=== PATIENT | female | born 1950 | race Caucasian/White ===

== ENCOUNTER → 2016-12-07 | Outpatient (CLI) | payer OTHER ==
[~2016-12-07] MED LIST: AMARYL4 MG PO; APIDRA SOL100 UNIT/1 SC; APIDRA100 UNIT/1; APIDRA100 UNIT/1 SC; ASCOMP WITH CO1 EACH PO; ASCORBIC ACID500 M3 PO; ASPIR 8181 M1 PO; ASPIR-LOW81 M1 PO; ASPIRIN81 M2 PO; BUMETANIDE1 MG PO; BUPROPION XL300 MG PO; CEFTIN500 MG PO; CELEXA20 MG PO; CITALOPRAM HBR20 MG PO; CLONAZEPAM1 MG PO; CRANBERRY TABL1 EACH PO; CRANBERRY500 M3 PO; ESZOPICLONE3 MG PO; FLEVOXIN TABLE1 EACH PO; FLEXERIL10 MG PO; GLUCOPHAGE500 MG PO; HYDROCODON-ACE1 EA10 PO; HYDROCODON-ACE1 EAC7 PO; K-DUR20 MEQ PO; KEFLEX500 MG PO; KLONOPIN2 MG PO; LANTUS 3 M100 UNITS1 SC; LISINOPRIL10 MG PO; LOPRESSOR25 MG PO; LOW DOSE ASPIRI81 M1 PO; LUNESTA3 MG PO; METFORMIN HCL1000 M1 PO; METFORMIN HCL1000 M3 PO; METFORMIN HCL1000 MG PO; METFORMIN HCL500 MG PO; METOPROLOL SUCC25 MG PO; METOPROLOL TART25 MG PO; NASCOBAL1 EACH NS; NASCOBAL2.3 ML NS; NEURONTIN300 MG PO; NICOTINE PATCH1 EAC2 TD; NORCO 10/3251 TABLET PO; NUVIGIL150 MG PO; PERCOCET 10/1 TABLET PO; PRINIVIL10 MG PO; RELPAX40 MG PO; REQUIP2 MG PO; RESTORIL7.5 MG PO; ROBINUL FORTE2 MG PO; ROCEPHIN1000 MG IV; ROPINIROLE HCL2 MG PO; SIMVASTATIN40 MG PO; SIMVASTATIN80 MG PO; TRULICITY1.5 MG/0.5 SC; VITAMIN C + RO500 MG PO; VITAMIN E400 UNIT PO; WELLBUTRIN SR100 MG PO; WELLBUTRIN SR150 MG PO; WELLBUTRIN XL300 MG PO; ZOCOR40 MG PO; ZOCOR80 MG PO
== END | disposition home or self-care (01) ==
LOC: AMB 11:15
DX: M48.06 Spinal stenosis, lumbar region (principal); M54.5 Low back pain
CPT/HCPCS: 62304; 72132

== ENCOUNTER 2017-03-07 11:04 | Emergency (ER) | payer OTHER ==
[~2017-03-07] VITALS: Ht 160 cm; Wt 81.8 kg
[2017-03-07] MEDS ORDERED: MOTRIN800 MG PO (13:54)
[2017-03-07 14:13] VITALS: BP 133/83
== END 2017-03-07 14:18 | disposition home or self-care (01) ==
LOC: EME 11:04
DX: S20.211A Contusion of right front wall of thorax, initial encounter (principal); W10.9XXA Fall (on) (from) unspecified stairs and steps, initial encounter; I10 Essential (primary) hypertension; K21.9 Gastro-esophageal reflux disease without esophagitis; Z79.82 Long term (current) use of aspirin; Z87.891 Personal history of nicotine dependence; Z96.653 Presence of artificial knee joint, bilateral
CPT/HCPCS: 71020; 99281; 99284

== ENCOUNTER 2017-03-13 12:48 | Observation (INO) | payer OTHER ==
[~2017-03-13] VITALS: Ht 160 cm; Wt 86.6 kg
[~2017-03-13 12:48] MED LIST changes: +MOTRIN800 MG PO
[2017-03-13 13:36] LABS: HEMATOCRIT 35.4 % (36.0-46.0); MCH 30.3 PG (29.0-34.0); MCHC 33.3 G/DL (30.0-36.0); MEAN PLAT.VOLUME 10.1 uM^3 (9.5-12.4); PLATELET COUNT 217 K/uL (156-360); RBC DIS.WIDTH-CV 13.2 % (11.8-14.6); RBC DIS.WIDTH-SD 43.5 % (39-53); RED BLOOD COUNT 3.89 M/uL (3.80-5.20); WHITE BLOOD COUNT 10.2 K/uL (4.1-10.2)
[2017-03-13 13:44] LABS: CHLORIDE 104 mEq/L (99-109); POTASSIUM 4.3 mEq/L (3.7-5.4); SODIUM 140 mEq/L (136-147)
[2017-03-13 13:47] LABS: GLUCOSE 151 mg/dL (70-99)
[2017-03-13 13:48] LABS: ANION GAP 12 MEQ/L (2-14)
[2017-03-13 13:49] LABS: TOTAL BILIRUBIN 0.4 mg/dL (0.0-1.0)
[2017-03-13 13:50] LABS: ALKALINE PHOSPHATASE 79 IU/L (3-129); SERUM ETHYL ALCOHOL < 10 mg/dL
[2017-03-13 13:51] LABS: GFR ESTIMATE (CALCULATED) 32 mL/min/
[2017-03-13 13:52] LABS: UREA NITROGEN (BUN) 29 mg/dL (9-23)
[2017-03-13] MEDS ORDERED: TOPROL XL50 MG PO (16:13)
[2017-03-13] MEDS ORDERED: IBUPROFEN800 MG PO (16:14)
[2017-03-13] MEDS ORDERED: NEURONTIN600 MG PO (16:15)
[2017-03-13] MEDS ORDERED: LUNESTA3 MG PO (16:16)
[2017-03-13] MEDS ORDERED: REQUIP3 MG PO (16:16)
[2017-03-13] MEDS ORDERED: LANTUS 3 M100 UNITS1 SC (16:18)
[2017-03-13] MEDS ORDERED: CYANOCOBAL1000 MCG/2 IM (16:18)
[2017-03-13] MEDS ORDERED: ATORVASTATIN CA20 MG PO (16:18)
[2017-03-13] MEDS ORDERED: PRED FORTE100 DROP/5 RIGHT EYE (16:19)
[2017-03-13] MEDS ORDERED: CARDIZEM CD,CA240 MG PO (16:19)
[2017-03-13] MEDS ORDERED: PROLENSA1.6 ML RIGHT EYE (16:19)
[2017-03-13] MEDS ORDERED: OMEPRAZOLE20 MG PO (16:19)
[2017-03-13] MEDS ORDERED: VITAMIN D31000 UNIT PO (16:20)
[2017-03-13] MEDS ORDERED: SUPER CALCIUM600 MG PO (16:20)
[2017-03-13 19:50] LABS: ADD MIUA? YES; BILIRUBIN NEGATIVE; BLOOD SMALL; COLOR YELLOW ((YELLOW)); GLUCOSE (STRIP) NEGATIVE; KETONES NEGATIVE; LEUKOCYTES LARGE; NITRITE NEGATIVE; PROTEIN (STRIP) NEGATIVE; SPECIFIC GRAVITY 1.009 (1.000-1.030); UROBILINOGEN 0.2 MG/DL (0.2-1.0)
[2017-03-13 20:00] VITALS: BP 107/60
[2017-03-13 20:00] LABS: ADD MEDTOX COMMENT Y; AMPHETAMINE NEGATIVE (500 ng/mL); BARBITURATES NEGATIVE (200 ng/mL); BENZODIAZEPINES NEGATIVE (150 ng/mL); COCAINE NEGATIVE (150 ng/mL); INTERNAL CONTROLS VALID? YES; METHADONE NEGATIVE (200 ng/mL); METHAMPHETAMINE NEGATIVE (500 ng/mL); OPIATES (MORPHINE) PRESUMPTIVE POSITIVE (100 ng/mL); OXYCODONE NEGATIVE (100 ng/mL); PHENCYCLIDINE NEGATIVE (25 ng/mL); PROPOXYPHENE NEGATIVE (300 ng/mL); THC CANNABINOIDS NEGATIVE (50 ng/mL); TRICYCLIC ANTIDEPRESSANTS NEGATIVE (300 ng/mL)
[2017-03-13 20:11] LABS: BACTERIA RARE /HPF; EPITHELIAL CELLS RARE /HPF; MUCUS TRACE /LPF; RED BLOOD CELLS NONE SEEN /HPF (0-5); UCUL ADDED? NO; WHITE BLOOD CELLS 40-50 /HPF (0-5)
[2017-03-13 21:55] LABS: INTERNAL CONTROL VALID? YES
[2017-03-13 22:06] LABS: INTERNAL CONTROL VALID? YES
[2017-03-13 22:39] LABS: C DIFF TOXIN NEGATIVE (NEGATIVE)
[2017-03-13 22:42] LABS: PROBE CHECK PASS; SPECIMEN PROCESSING CONTROL PASS
[2017-03-14] VITALS (7 sets, daily range): BP systolic 90–138; BP diastolic 52–81
[2017-03-14 07:30] LABS: POINT-OF-CARE METER ID UU14188625
[2017-03-14 07:43] LABS: MCH 30.5 PG (29.0-34.0); MCHC 32.7 G/DL (30.0-36.0); MCV 93.2 FL (83-99); MEAN PLAT.VOLUME 11.3 uM^3 (9.5-12.4); PLATELET COUNT 179 K/uL (156-360); RBC DIS.WIDTH-CV 13.2 % (11.8-14.6); RBC DIS.WIDTH-SD 45.1 % (39-53); RED BLOOD COUNT 3.54 M/uL (3.80-5.20)
[2017-03-14 07:45] LABS: ANION GAP 7 MEQ/L (2-14); CHLORIDE 102 MEQ/L (99-109); GFR ESTIMATE (CALCULATED) 44 mL/min/; POTASSIUM 4.4 MEQ/L (3.7-5.4); SAMPLE HEMOLYSIS CHECK 0; SAMPLE ICTERIC CHECK 0; SAMPLE LIPEMIA CHECK 0; SODIUM 140 MEQ/L (136-147); UREA NITROGEN (BUN) 24 mg/dL (9-23)
[2017-03-14 07:50] LABS: GLUCOSE 238 mg/dL (70-99)
[2017-03-14 07:58] LABS: WHITE BLOOD COUNT 5.8 K/uL (4.1-10.2)
[2017-03-14 16:50] LABS: POINT-OF-CARE METER ID UU14174225
[2017-03-14 21:17] LABS: POINT-OF-CARE METER ID UU14174225
[2017-03-15 08:25] VITALS: BP 127/81
[2017-03-15 08:53] LABS: POINT-OF-CARE METER ID UU14174225
[2017-03-15 09:07] LABS: HEMATOCRIT 35.5 % (36.0-46.0); MCH 30.1 PG (29.0-34.0); MCHC 32.7 G/DL (30.0-36.0); MEAN PLAT.VOLUME 10.7 uM^3 (9.5-12.4); PLATELET COUNT 173 K/uL (156-360); RBC DIS.WIDTH-CV 12.9 % (11.8-14.6); RBC DIS.WIDTH-SD 43.1 % (39-53); RED BLOOD COUNT 3.86 M/uL (3.80-5.20); WHITE BLOOD COUNT 6.2 K/uL (4.1-10.2)
[2017-03-15 09:19] LABS: CHLORIDE 102 mEq/L (99-109); POTASSIUM 4.3 mEq/L (3.7-5.4); SODIUM 141 mEq/L (136-147)
[2017-03-15 09:20] LABS: GLUCOSE 155 mg/dL (70-99)
[2017-03-15 09:22] LABS: ANION GAP 11 MEQ/L (2-14)
[2017-03-15 09:24] LABS: GFR ESTIMATE (CALCULATED) 59 mL/min/
[2017-03-15 09:25] LABS: UREA NITROGEN (BUN) 13 mg/dL (9-23)
[2017-03-15 12:12] LABS: POINT-OF-CARE METER ID UU14174225
[2017-03-15] MEDS ORDERED: CIPRO500 MG PO (12:23)
[2017-03-15] MEDS ORDERED: FLAGYL500 MG PO (12:23)
== END 2017-03-15 13:20 | disposition home or self-care (01) ==
LOC: EME 12:48 → EDOF 16:59 → 5SOUTH 16:59 → EDOF 16:59 → 5SOUTH 19:09
PROVIDERS: Hospitalist; Internal Medicine; Nurse Practitioner Adult Health
DX: N17.9 Acute kidney failure, unspecified (principal); R07.89 Other chest pain; R19.7 Diarrhea, unspecified; R11.2 Nausea with vomiting, unspecified; R47.81 Slurred speech; R42 Dizziness and giddiness; E11.9 Type 2 diabetes mellitus without complications; G47.33 Obstructive sleep apnea (adult) (pediatric); F32.9 Major depressive disorder, single episode, unspecified; E78.5 Hyperlipidemia, unspecified; E66.9 Obesity, unspecified; R63.4 Abnormal weight loss; Z87.891 Personal history of nicotine dependence; G43.909 Migraine, unspecified, not intractable, without status migrainosus; K21.9 Gastro-esophageal reflux disease without esophagitis; I10 Essential (primary) hypertension
CPT/HCPCS: 70450; 71101; 74176; 80048; 80053; 81003; 82272; 82948; 83630; 84999; 85027; 87493; 87506; 93005; 94660; 99281; 99284; G0378; G0480; G8978 GP CH; G8979 GP CH; G8980 GP CH; J0744; J1644; J1815; J2405; J7030; J7120; S0030

== ENCOUNTER 2017-06-30 15:21 | Emergency (ER) | payer OTHER ==
[~2017-06-30] VITALS: Ht 160 cm; Wt 90.5 kg
[~2017-06-30 15:21] MED LIST changes: +ATORVASTATIN CA20 MG PO; +CARDIZEM CD,CA240 MG PO; +CIPRO500 MG PO; +CYANOCOBAL1000 MCG/2 IM; +FLAGYL500 MG PO; +IBUPROFEN800 MG PO; +NEURONTIN600 MG PO; +OMEPRAZOLE20 MG PO; +PRED FORTE100 DROP/5 RIGHT EYE; +PROLENSA1.6 ML RIGHT EYE; +REQUIP3 MG PO; +SUPER CALCIUM600 MG PO; +TOPROL XL50 MG PO; +VITAMIN D31000 UNIT PO
[2017-06-30] MEDS ORDERED: PERCOCET 5/31 TABLET PO (18:34)
[2017-06-30 19:05] VITALS: BP 108/59
== END 2017-06-30 19:06 | disposition home or self-care (01) ==
LOC: EME 15:21
PROC: 2W3CX1Z Immobilization of Right Lower Arm using Splint (ICD-10-PCS; principal; 2017-06-30)
DX: S52.591A Other fractures of lower end of right radius, initial encounter for closed fracture (principal); W01.0XXA Fall on same level from slipping, tripping and stumbling without subsequent striking against object, initial encounter; Y92.512 Supermarket, store or market as the place of occurrence of the external cause; I10 Essential (primary) hypertension; E11.9 Type 2 diabetes mellitus without complications; Z79.4 Long term (current) use of insulin; F03.90 Unspecified dementia, unspecified severity, without behavioral disturbance, psychotic disturbance, mood disturbance, and anxiety; Z96.653 Presence of artificial knee joint, bilateral; F17.200 Nicotine dependence, unspecified, uncomplicated
CPT/HCPCS: 70450; 73110; 73130; 99281; 99284